=== PATIENT | male | born 1995 | race Caucasian/White ===

== ENCOUNTER 2024-02-11 15:23 | Emergency (ER) | payer SELFPAY ==
[~2024-02-11] VITALS: Ht 182.9 cm; Wt 67.6 kg
[2024-02-11 17:07] VITALS: BP 111/62; PULSE 80; RESP 16; TEMP 97.7; O2SAT 100
[2024-02-11] MEDS ORDERED: IBUP-1456 PO (17:09)
== END 2024-02-11 17:14 | disposition home or self-care (01) ==
LOC: ER 15:23
DX: S02.2XXA Fracture of nasal bones, initial encounter for closed fracture (principal); Z79.899 Other long term (current) drug therapy; W22.8XXA Striking against or struck by other objects, initial encounter; Y93.89 Activity, other specified; Y92.89 Other specified places as the place of occurrence of the external cause; Y99.8 Other external cause status
CPT/HCPCS: 70160

== ENCOUNTER 2025-01-06 07:44 | Emergency (ER) | payer OTHER ==
[~2025-01-06] VITALS: Ht 180.3 cm; Wt 78.6 kg
[~2025-01-06 07:44] MED LIST: IBUP-1456 PO
[2025-01-06 08:06] VITALS: BP 108/56; PULSE 95; RESP 20; TEMP 99; O2SAT 98
--- NOTE | 2025-01-06 08:11 | ED.PDOC ---
HPI Comments A 29 YEAR OLD MALE PRESENTS TO THE ED WITH COMPLAINT OF LACERATION OF RIGHT INDEX FINGER. 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 PATIENT REPORTS HE SUSTAINED A LACERATION ON HIS RIGHT INDEX FINGER IS NOW EXPERIENCING PAIN TO HIS RIGHT INDEX FINGER. BLEEDING IS CONTROLLED AT THIS TIME. PATIENT DENIES FEVER, CHILLS, SHORTNESS OF BREATH, CHEST PAIN, ABDOMINAL PAIN, NAUSEA, VOMITING, HEADACHE, OR OTHER COMPLAINTS. NO OTHER SYMPTOMS OR MODIFYING FACTORS AT THIS TIME. PATIENT IS ALERT, ORIENTED X 4, AND HAS STEADY GAIT. Chief Complaint: Upper Extremity Time Seen by MD: 07:48 Primary Care Provider: NONE Reviewed Notes: Nurses Notes, Medications, Allergies Allergies: Uncoded Allergies: BEES (Allergy, Unknown, 02/11/24) Home Meds Active Scripts Cephalexin Monohydrate (Cephalexin) 500 Mg Cap, 1 CAP PO QID, #28 CAP Prov:DAYNA PINON 01/06/25 Ibuprofen (Ibuprofen) 800 Mg Tab, 1 TAB PO TID, #30 TAB Prov:DAYNA PINON 02/11/24 Information Source: Patient Mode of Arrival: Ambulatory Severity: Moderate Severity of Laceration: Controlled Bleeding Complexity: Simple Timing: Hours Prehospital treatment: None Laceration Location: Digit #2 (RIGHT INDEX FINGER) Mechanism: Metal Last Tetanus: Unknown Laceration Length (cm): 2 Skin Type: Linear Depth of Injury: Skin, SQ Tendon Injury: 0% Capillary Refill: < 3 seconds Tender: Moderate Discharge: None Erythema: None Associated Signs and Symptoms: None Past Medical History PAST MEDICAL HISTORY: Denies Surgical History: Denies all surgeries Family History Family History: Reviewed,noncontributory to illness Social History Smoker: Non-Smoker Alcohol: Denies ETOH Use Drugs: Denies Drug Use Lives In: Home Constitutional: denies: chills, diaphoresis, fatigue, fever, malaise, sweats, weakness, others EENTM: denies: blurred vision, double vision, ear bleeding, ear discharge, ear drainage, ear pain, ear ringing, eye pain, eye redness, hearing loss, mouth pain, mouth swelling, nasal discharge, nose bleeding, nose congestion, nose pain, photophobia, tearing, throat pain, throat swelling, voice changes, others Respiratory: denies: cough, hemoptysis, orthopnea, SOB at rest, shortness of breath, SOB with excertion, stridor, wheezing, others Cardiovascular: denies: chest pain, dizzy spells, diaphoresis, Dyspnea on exertion, edema, irregular heart beat, left arm pain, lightheadedness, palpitations, PND, syncope, others Gastrointestinal: denies: abdomen distended, abdominal pain, blood streaked bowels, constipated, diarrhea, dysphagia, difficulty swallowing, hematemesis, melena, nausea, poor appetite, poor fluid intake, rectal bleeding, rectal pain, vomiting, others Genitourinary: denies: burning, dysuria, flank pain, frequency, hematuria, incontinence, penile discharge, penile sore, pain, testicle pain, testicle swelling, urgency, others Neurological: denies: dizziness, fainting, headache, left sided numbness, left sided weakness, numbness, paresthesia, pre-existing deficit, right sided numbness, right sided weakness, seizure, speech problems, tingling, tremors, weakness, others Musculoskeletal: reports: others (RIGHT INDEX FINGER PAIN); denies: back pain, gout, joint pain, joint swelling, muscle pain, muscle stiffness, neck pain Integumetry: reports: laceration (LACERATION OF RIGHT INDEX FINGER); denies: bruises, change in color, change in hair/nails, dryness, lesions, lumps, rash, wounds, others Allergic/Immunocompromised: denies: Difficulty Healing, Frequent Infections, Hives, Itching, others Hematologic/Lymphatic: denies: anemia, blood clots, easy bleeding, easy bruising, swollen glands, others Endocrine: denies: excessive hunger, excessive sweating, excessive thirst, excessive urination, flushing, intolerance to cold, intolerance to heat, unexplained weight gain, unexplained weight loss, others Psychiatric: denies: anxiety, bipolar disorder, depression, hopeless, panic disorder, schizophrenia, sleepless, suicidal, others All Other Systems: Reviewed and Negative Physical Exam General Appearance: No Apparent Distress, Normal HEENT: Normal ENT Inspection, PERRL/EOMI, Pharynx Normal, TMs Normal Neck: Full Range of Motion, Non-Tender, Normal, Normal Inspection Respiratory: Chest Non-Tender, Lungs Clear, No Accessory Muscle Use, No Respiratory Distress, Normal Breath Sounds Cardiovascular: No Edema, No JVD, No Murmur, No Gallop, Normal Peripheral Pulses, Regular Rate/Rhythm Breast Exam: Deferred Gastrointestinal: No Organomegaly, Non Tender, No Pulsatile Mass, Normal Bowel Sounds, Soft Genitalia: Deferred Pelvic: Deferred Rectal: Deferred Extremities: No calf tenderness, Normal capillary refill, Normal range of motion, No pedal edema, Tender (WITH LACERATION ON RIGHT INDEX FINGER, NO BONY TENDERNESS, SWELLING AND DEFORMITY, NORMAL ROM, NEUROVASCULAR INTACT. ) Musculoskeletal : Apperance: Normal Neurologic: Alert, manufacture specialist II-XII nml as Tested, No Motor Deficits, Normal Affect, Normal Mood, No Sensory Deficits Cerebellar Function: Normal Reflexes: Normal Skin: Dry, Lacerations (2.5CM LACERATION ON RIGHT INDEX FINGER, NO BLEEDING AND FB, NORMAL ROM. ), Normal Color, Warm Peripheral Pulses: 2+ carotid (R), 2+ carotid (L), 2+ Radial (R), 2+ Radial (L) Lymphatic: No Adenopathy Was a procedure done? Was a procedure done?: Yes Sedation Sedation?: No Laceration Repair : Location RIGHT INDEX FINGER Length 2.5CM Anesthetic: Lidocaine, Without epi Laceration Repair Prep: Saline, by Irrigation Laceration Repair Wound Comple: epidermis/dermis repair Laceration Repair: Number of sutures (5), SQ, Size (4-0 ETHILON), Nylon, Simple, Gauze Informed consent obtained: No Risks, benefits, and alternati: Yes Images 1 - Differential diagnosis Generic Laceration: Fracture, Retained Foriegn Body, Abrasion/Contusion, Laceration, Avulsion Differential Diagnosis: N/A X-Ray, Labs, Meds, VS Vital Signs Date Time Temp Pulse Resp B/P (MAP) Pulse Ox O2 Delivery O2 Flow Rate FiO2 01/06/25 08:06 95 01/06/25 08:06 99.0 95 20 108/56 (73) 98 99.0 01/06/25 07:57 99.0 95 20 108/56 (73) 98 99.0 PATIENT: ALLAN VERAST: [id number]: [id number] : 1995 LOC: ER ROOM / BED: / AGE / SEX: 29 / M ADM STATUS: REG ER SERVICE [id number] ORDERING PHYSICIAN: DAYNA PINON PROCEDURE(s): RFIN2 - R 2ND FINGER XRAY REASON: INJURY ORDER NUMBER(s): [id number], ACCESSION NUMBER(s): [id number] EXAM: XR Right 2nd Fingers, 2 or More Views CLINICAL INDICATION: INJURY TECHNIQUE: Frontal, lateral and oblique views of the 2nd fingers of the right hand. COMPARISON: None FINDINGS: BONES/JOINTS: See below. SOFT TISSUES: Soft tissue laceration of the 2nd digit. No radiopaque foreign body. No acute fracture. OTHER FINDINGS: . IMPRESSION: Soft tissue laceration of the 2nd digit. No radiopaque foreign body. No acute fracture. ATED BY: SEAN DIAS MD DICTATED DATE/TIME: 01/06/25842 SIGNED BY: SEAN DIAS MD SIGNED DATE/TIME: 01/06/25842 CC: X-Ray, Labs, Meds, VS Comment EXTERNAL MEDICAL RECORDS REVIEWED: [NONE] INDEPENDENT HISTORIANS: [NONE] SOCIAL DETERMINANTS OF HEALTH: [NONE] LABS ORDERED: NONE REVIEWED AND INTERPRETED RESULTS: NONE IMAGING ORDERED: XR HAND RT: [INTERPRETED BY ME. NO ACUTE FINDINGS. NO FRACTURES OR DISLOCATION. PENDING RADIOLOGIST REPORT.] TREATMENTS ORDERED: LACERATION REPAIR PROCEDURES PERFORMED: LACERATION REPAIR CRITICAL CARE TIME: NONE I HAVE DISCUSSED THE PATIENT WITH THE ATTENDING PHYSICIAN DR. ZAZUETA AND HE AGREES WITH THE PATIENT'S PLAN OF CARE AND DISPOSITION. BASED ON HISTORY OF PRESENT ILLNESS, AND PHYSICAL EXAM, PATIENT WILL BE DISCHARGED HOME. DISCUSSED PLAN FOR DISCHARGE HOME WITH RX [KEFLEX]. MEDICATION WARNINGS GIVEN. SHARED DECISION MAKING: PATIENT INSTRUCTED TO FOLLOW UP WITH PRIMARY CARE PROVIDER IN 1-2 DAYS FOR RE-EVALUATION OF SYMPTOMS. PATIENT VERBALIZES UNDERSTANDING TO RETURN TO ED FOR NEW OR WORSENING SYMPTOMS OR IF FOLLOW UP WITH PCP CANNOT BE OBTAINED. PATIENT FEELS COMFORTABLE GOING HOME AT THIS TIME. ALL QUESTIONS ADDRESSED AT TIME OF DISCHARGE. Images Reviewed?: Images reviewed and evaluated by me Time of 1ST Reevaluation: 09:00 Reevaluation 1ST: Improved Patient Education/Counseling: Diagnosis, Treatment, Need For Follow Up Family Education/Counseling: Diagnosis, Treatment, Need For Follow Up Medical Screening: No EMC Exist At This Time Departure 1 Departure Time of Disposition: 09:00 Impression: Primary Impression: Laceration of right index finger Qualified Codes: S61.210A - Laceration without foreign body of right index finger without damage to nail, initial encounter Disposition: HOME / SELF CARE / HOMELESS Condition: Stable Additional Instructions: FOLLOW-UP WITH PCP IN 1 TO 2 DAYS. TAKE MEDICATIONS PRESCRIBED. RETURN TO ED FOR ANY NEW OR WORSENING SYMPTOMS. e-Prescriptions Cephalexin Monohydrate (Cephalexin) 500 Mg Cap 1 CAP PO QID, #28 CAP Prov: DAYNA PINON 01/06/25 Discharged With: Self Critical Care Note Critical Care Time?: No Stability Stability form required: No I personally scribed for DAYNA PINON ([email or web address]) on 01/06/25 at 08:11. Electronically submitted by Rafael Jones (C-Note). I personally scribed for DAYNA PINON ([email or web address]) on 01/06/25 at 08:39. Electronically submitted by Rafael Jones (C-Note). I personally scribed for DAYNA PINON ([email or web address]) on 01/06/25 at 08:39. Electronically submitted by Rafael Jones (C-Note). DAYNA PINON Jan 06, 2025 08:11
[2025-01-06] MEDS ORDERED: CEPH500C PO (08:39)
--- NOTE | 2025-01-06 08:45 | DVH ---
EXAM: XR Right 2nd Fingers, 2 or More Views CLINICAL INDICATION: INJURY TECHNIQUE: Frontal, lateral and oblique views of the 2nd fingers of the right hand. COMPARISON: None FINDINGS: BONES/JOINTS: See below. SOFT TISSUES: Soft tissue laceration of the 2nd digit. No radiopaque foreign body. No acute fractur e. OTHER FINDINGS: . IMPRESSION: Soft tissue laceration of the 2nd digit. No radiopaque foreign body. No acute fracture.
== END 2025-01-06 08:49 | disposition home or self-care (01) ==
LOC: ER 07:44
DX: S61.210A Laceration without foreign body of right index finger without damage to nail, initial encounter (principal); Z79.1 Long term (current) use of non-steroidal anti-inflammatories (NSAID); Z91.030 Bee allergy status; Z79.899 Other long term (current) drug therapy; W26.8XXA Contact with other sharp object(s), not elsewhere classified, initial encounter; Y93.89 Activity, other specified; Y92.89 Other specified places as the place of occurrence of the external cause; Y99.8 Other external cause status
CPT/HCPCS: 12001; 73140; 99283; J2003

== ENCOUNTER 2025-01-16 11:04 | Emergency (ER) | payer OTHER ==
[~2025-01-16] VITALS: Ht 180.3 cm; Wt 74.0 kg
[~2025-01-16 11:04] MED LIST changes: +CEPH500C PO
[2025-01-16 11:33] VITALS: BP 112/75; PULSE 74; RESP 17; TEMP 98.7; O2SAT 97
--- NOTE | 2025-01-16 11:43 | ED.PDOC ---
History of Present Illness(SKN HPI Comments 29 year old presents for suture removal. No other complaints. Chief Complaint: Suture Removal Time Seen by MD: 11:26 Primary Care Provider: NONE History of Present Illness: Nurses Notes, Medications, Allergies Allergies: Uncoded Allergies: BEES (Allergy, Unknown, 02/11/24) Home Meds Active Scripts Cephalexin Monohydrate (Cephalexin) 500 Mg Cap, 1 CAP PO QID, #28 CAP Prov:DAYNA PINON 01/06/25 Ibuprofen (Ibuprofen) 800 Mg Tab, 1 TAB PO TID, #30 TAB Prov:DAYNA PINON 02/11/24 Information Source: Patient Mode of Arrival: Ambulatory Past Medical History PAST MEDICAL HISTORY: Denies Surgical History: Denies all surgeries Family History Family History: Reviewed,noncontributory to illness Social History Smoker: Non-Smoker Alcohol: Denies ETOH Use Drugs: Denies Drug Use Lives In: Home All Other Systems: Reviewed and Negative (Per HPI) Physical Exam General Appearance: No Apparent Distress, Normal HEENT: Normal ENT Inspection, Pharynx Normal, TMs Normal Neck: Full Range of Motion, Non-Tender, Normal, Normal Inspection Respiratory: Chest Non-Tender, Lungs Clear, No Accessory Muscle Use, No Respiratory Distress, Normal Breath Sounds Cardiovascular: No Murmur, No Gallop, Regular Rate/Rhythm Breast Exam: Deferred Gastrointestinal: No Organomegaly, Non Tender, No Pulsatile Mass, Normal Bowel Sounds, Soft Genitalia: Deferred Pelvic: Deferred Rectal: Deferred Extremities: No calf tenderness, Normal capillary refill, Normal inspection, Normal range of motion, Non-tender, No pedal edema Musculoskeletal : Apperance: Normal Neurologic: Alert, No Motor Deficits, Normal Affect, Normal Mood, No Sensory Deficits Cerebellar Function: Normal Reflexes: Normal Skin: Dry, Normal Color, Warm Lymphatic: No Adenopathy Was a procedure done? Was a procedure done?: No Differential Diagnosis (INTG) Differential Diagnosis: Other X-Ray, Labs, Meds, VS Vital Signs Date Time Temp Pulse Resp B/P (MAP) Pulse Ox O2 Delivery O2 Flow Rate FiO2 01/16/25 11:33 98.7 74 17 112/75 (87) 97 98.7 01/16/25 11:33 74 17 97 Room Air 01/16/25 11:20 98.7 79 17 112/75 (87) 97 98.7 X-Ray, Labs, Meds, VS Comment Alcohol swab used to clean area thoroughly. Used sterile suture removal kit Clean, dry, intact. No discharge seen. Education provided to keep area clean and dry. If gets soiled, use soap and water to clean. Watch out for signs and symptoms of infection including fever, chills, yellow or green discharge, increased pain, swelling etc. Time of 1ST Reevaluation: 11:42 Reevaluation 1ST: Improved Patient Education/Counseling: Diagnosis, Treatment Family Education/Counseling: Diagnosis, Treatment Departure 1 Departure Time of Disposition: 11:43 Impression: Primary Impression: Visit for suture removal Disposition: HOME / SELF CARE / HOMELESS Condition: Stable Additional Instructions: Discharge Note: Drink plenty of fluids. Follow up with your primary Dr. Take your prescriptions as ordered. If your condition becomes worse call and follow up with your primary Dr. for instructions or return to the ER if needed. Thank you for visiting [facility]. Discharged With: Self Critical Care Note Critical Care Time?: No Stability Stability form required: No Heart Score Heart Score: Heart Score Response (Comments) Value History N/A 0 EKG N/A 0 Age N/A 0 Risk Factors N/A 0 Troponin N/A 0 Total 0 LIN FRAGOSO NP Jan 16, 2025 11:43
== END 2025-01-16 11:50 | disposition home or self-care (01) ==
LOC: ER 11:04
DX: S61.219D Laceration without foreign body of unspecified finger without damage to nail, subsequent encounter (principal); Z48.02 Encounter for removal of sutures; Z79.1 Long term (current) use of non-steroidal anti-inflammatories (NSAID); Z91.030 Bee allergy status; W27.0XXD Contact with workbench tool, subsequent encounter

== ENCOUNTER 2025-03-17 18:01 | Emergency (ER) | payer SELFPAY ==
[~2025-03-17] VITALS: Ht 180.3 cm; Wt 75.0 kg
--- NOTE | 2025-03-17 18:25 | ED.PDOC ---
Back pain HPI HPI Comments PT PRESENTED TO THE ER WITH RIGHT FOOT/ANKLE PAIN. PT REPORTS THAT HE JUMPED APPROXIMATELY 30 FT OFF A ROOF INTO THE SHALLOW END OF A SWIMMING POOL. DENIES NUMBNESS AND WEAKNESS Chief Complaint: Lower Extremity Time Seen by MD: 18:03 Primary Care Provider: NONE Reviewed Notes: Nurses Notes, Medications, Allergies Allergies: Uncoded Allergies: BEES (Allergy, Unknown, 02/11/24) Home Meds Active Scripts Methylprednisolone (Medrol Dosepak) 4 Mg Adrian, 4 MG PO UD for 6 Days, #21 TAB UAD Prov:WAQAR KIDD SERVICE CORRESPONDENT 03/17/25 Cephalexin Monohydrate (Cephalexin) 500 Mg Cap, 1 CAP PO QID, #28 CAP Prov:DAYNA PINON 01/06/25 Ibuprofen (Ibuprofen) 800 Mg Tab, 1 TAB PO TID, #30 TAB Prov:DAYNA PINON 02/11/24 Information Source: Patient Past Medical History PAST MEDICAL HISTORY: Denies Surgical History: Denies all surgeries Family History Family History: Reviewed,noncontributory to illness Social History Smoker: Non-Smoker Alcohol: Denies ETOH Use Drugs: Denies Drug Use Lives In: Home Constitutional: denies: chills, diaphoresis, fatigue, fever, malaise, sweats, weakness, others EENTM: denies: blurred vision, double vision, ear bleeding, ear discharge, ear drainage, ear pain, ear ringing, eye pain, eye redness, hearing loss, mouth pain, mouth swelling, nasal discharge, nose bleeding, nose congestion, nose pain, photophobia, tearing, throat pain, throat swelling, voice changes, others Respiratory: denies: cough, hemoptysis, orthopnea, SOB at rest, shortness of breath, SOB with excertion, stridor, wheezing, others Cardiovascular: denies: chest pain, dizzy spells, diaphoresis, Dyspnea on exertion, edema, irregular heart beat, left arm pain, lightheadedness, palpitations, PND, syncope, others Gastrointestinal: denies: abdomen distended, abdominal pain, blood streaked bowels, constipated, diarrhea, dysphagia, difficulty swallowing, hematemesis, melena, nausea, poor appetite, poor fluid intake, rectal bleeding, rectal pain, vomiting, others Genitourinary: denies: burning, dysuria, flank pain, frequency, hematuria, incontinence, penile discharge, penile sore, pain, testicle pain, testicle swelling, urgency, others Neurological: denies: dizziness, fainting, headache, left sided numbness, left sided weakness, numbness, paresthesia, pre-existing deficit, right sided numbness, right sided weakness, seizure, speech problems, tingling, tremors, weakness, others Musculoskeletal: denies: back pain, gout, joint pain, joint swelling, muscle pain, muscle stiffness, neck pain, others Integumetry: denies: bruises, change in color, change in hair/nails, dryness, laceration, lesions, lumps, rash, wounds, others Allergic/Immunocompromised: denies: Difficulty Healing, Frequent Infections, Hives, Itching, others Hematologic/Lymphatic: denies: anemia, blood clots, easy bleeding, easy bruising, swollen glands, others Endocrine: denies: excessive hunger, excessive sweating, excessive thirst, excessive urination, flushing, intolerance to cold, intolerance to heat, unexplained weight gain, unexplained weight loss, others Psychiatric: denies: anxiety, bipolar disorder, depression, hopeless, panic disorder, schizophrenia, sleepless, suicidal, others Physical Exam General Appearance: No Apparent Distress, Normal HEENT: Pharynx Normal Neck: Full Range of Motion, Non-Tender Respiratory: Lungs Clear, No Respiratory Distress, Normal Breath Sounds Cardiovascular: No Murmur, Normal Peripheral Pulses, Regular Rate/Rhythm Breast Exam: Deferred Gastrointestinal: Non Tender, Soft Genitalia: Deferred Pelvic: Deferred Rectal: Deferred Extremities: Normal capillary refill, Normal inspection, Normal range of motion, Non-tender, No pedal edema Musculoskeletal : Location: Right Extremity Location: Foot (MODERATE TENDERNESS PALPATED OVER HEEL OF RIGHT FOOT NO NOTED ABRASIONS, LESIONS, LACERATIONS OR SWELLING WITHOUT ECCHYMOSIS STRENGTH SENSORY MOTION INTACT POSITIVE PEDAL PULSE) Apperance: Normal Neurologic: Alert, stratigrapher II-XII nml as Tested, No Motor Deficits, Normal Affect, Normal Mood, No Sensory Deficits Cerebellar Function: Normal Reflexes: Normal Skin: Dry, Normal Color, Warm Lymphatic: No Adenopathy Was a procedure done? Was a procedure done?: No Back Pain Differential Dx Differential Diagnosis: Fracture X-Ray, Labs, Meds, VS Vital Signs Date Time Temp Pulse Resp B/P (MAP) Pulse Ox O2 Delivery O2 Flow Rate FiO2 03/17/25 18:11 98.6 95 18 134/60 (84) 96 98.6 X-Ray, Labs, Meds, VS Comment FOOT AND ANKLE X-RAY SHOWS NO ACUTE FRACTURES, DISLOCATIONS, SUBLUXATIONS, OSSEOUS LESIONS. LIKELY A CALCANEUS CONTUSION. CRUTCH TRAINING PROVIDED DANIEL WRAP. ADVISED ON RICE. SCRIPT MEDROL DOSEPAK TO PHARMACY ON FILE. ADVISED TO TAKE MEDICATIONS PRESCRIBED SIDE EFFECTS DISCUSSED FOLLOW UP WITH YOUR PCP IN 2-3 DAYS NECESSARY CONSIDER FURTHER IMAGING SUCH MRI OR REPEAT X-RAY IF SY MPTOMS PERSIST. ER RETURN PRECAUTIONS GIVEN PATIENT INDICATES UNDERSTANDING AND AGREES WITH DISCHARGE PLAN OF CARE. Time of 1ST Reevaluation: 18:15 Reevaluation 1ST: Unchanged Time of 2ND Reevaluation: 19:30 Reevaluation 2ND: Improved Patient Education/Counseling: Diagnosis, Treatment, Prognosis, Need For Follow Up Family Education/Counseling: Diagnosis, Treatment, Prognosis, Need For Follow Up Departure 1 Departure Time of Disposition: 19:28 Impression: Primary Impression: Contusion of foot or heel Qualified Codes: S90.31XA - Contusion of right foot, initial encounter Disposition: HOME / SELF CARE / HOMELESS Condition: Stable e-Prescriptions Methylprednisolone (Medrol Dosepak) 4 Mg Adrian 4 MG PO UD for 6 Days, #21 TAB UAD Prov: WAQAR KIDD 03/17/25 Discharged With: Self Critical Care Note Critical Care Time?: No Stability Stability form required: No WAQAR KIDD March 17, 2025 18:25
--- NOTE | 2025-03-17 18:53 | DVH ---
XY R ANKLE 3 VIEW, INDICATION: RIGHT ANKLE PAIN TECHNICAL DATA:Frontal , oblique and lateral views were obtained of the right ankle. COMPARISON: None FINDINGS: No fracture is identified. Joint spaces are maintained. Alignment is anatomic. Soft tissues are wit hin normal limit. IMPRESSION: No acute fracture or dislocation of the right ankle.
--- NOTE | 2025-03-17 18:54 | DVH ---
XY R FOOT 3 VIEW XRAY, INDICATION: RIGHT FOOT PAIN TECHNICAL DATA: Frontal, oblique and lateral views were obtained of the right foot. COMPARISON: None FINDINGS: No fracture is identified. Joint spaces are maintained. Alignment is anatomic. The hallux sesamoids a ppear normal. Soft tissues are within normal limits. IMPRESSION: No acute fracture or dislocation of the right foot.
[2025-03-17] MEDS ORDERED: METH4PAK PO (19:30)
[2025-03-17 21:21] VITALS: BP 125/68; PULSE 71; RESP 16; TEMP 97.8; O2SAT 99
== END 2025-03-17 21:22 | disposition home or self-care (01) ==
LOC: ER 18:01
DX: S90.31XA Contusion of right foot, initial encounter (principal); Z79.1 Long term (current) use of non-steroidal anti-inflammatories (NSAID); Z91.030 Bee allergy status; W17.89XA Other fall from one level to another, initial encounter; Y93.89 Activity, other specified; Y92.89 Other specified places as the place of occurrence of the external cause; Y99.8 Other external cause status
CPT/HCPCS: 73610; 73630